=== PATIENT | male | born 1970 | race African-American/Black ===

== ENCOUNTER 2017-02-12 12:28 | Emergency (ER) | payer SELFPAY ==
[2017-02-12 12:50] VITALS: BP 137/102; BMI 41.5
--- NOTE | 2017-02-12 13:39 | DR.EXTPAIN ---
HPI - Time seen Time seen: 13:36 - PCP Primary Care Physician: HAROON - Complaint/Symptoms Chief Complaint:: PT C/O THAT SINCE YESTERDAY MORNING HE STARTED HAVING BACK PAIN THAT RADIATES TO HIS RIGHT LEG .... - Source History Provided: Patient - Mode of arrival Mode of Arrival: Wheelchair - Timing Onset of Chief Complaint: 02/11/17 PMH - PMH Past Medical History: No Past Medical History: Diabetes Past Surgical History: Yes Surgical History: Cholecystectomy Past Surgical History Comment: LEFT SHOULDER. - Family History History of Family Medical Conditions: Yes Family Medical History: Diabetes Mellitus, Hypertension - Social History Does patient currently use any type of tobacco product: No Have you used tobacco products in the last 12 months: No Type of Tobacco Use: None Does any household member use tobacco: No Alcohol Use: None Do you use any recreational Drugs:: No Lives With: Alone Lives Where: Home - infectious screening In the last 2 months have you had wt loss of >10#?: NO Have you had fever, night sweats or hemotysis?: No Have you traveled outside the country in the last 6 months?: No Isolation: Standard ROS - Review of Systems Constitutional: No Symptoms Reported Eyes: No Symptoms Reported ENTM: No Symptoms Reported Respiratoy: No Symptoms Reported Cardiovascular: No Symptoms Reported Gastrointestinal/Abdominal: No Symptoms Reported Genitourinary: No Symptoms Reported Neurological: Numbness (right leg) Musculoskeletal: Back Pain Integumentary: No Symptoms Reported Hematologic/Lymphatic: No Symptoms Reported Endocrine: No Symptoms Reported, Increased Hunger All Other Systems: Reviewed and Negative PE - Vital Signs Vitals: Temperature 98.5 F Pulse Rate 104 Respiratory Rate 20 Blood Pressure [Left Arm] 127/83 Blood Pressure 137/102 O2 Sat by Pulse Oximetry 98 - General Limitations: No Limitations General Appearance: Alert, In No Apparent Distress - Head Head Exam: Normal Inspection, Atraumatic - Eyes Eye exam: Normal Appearance, PERRL, EOMI - ENT ENT Exam: Normal Exam - Neck Neck Exam: Normal Inspection, Full ROM, Trachea Midline - Cardiovascular Cardiovascular Exam: Regular Rate - Abdominal Exam Abdominal Exam: Normal Inspection, Normal Bowel Sounds Abdominal Tenderness: negative: RUQ, RLQ, LUQ, LLQ, Epigastrium, Suprapubic, Diffuse, Mild, Moderate, Severe, Other - Extremities Extremities Exam: Normal Inspection, Full ROM - Upper Extremities Shoulder Exam: Normal Inspection Arm Exam: Normal Inspection, Full ROM Elbow Exam: Normal Inspection Forearm Exam: Normal Inspection Hand Exam: Normal Inspection Neuromotor Exam: Normal Exam, Wrist Extension Neurosensory Exam: Normal Exam Hand Tendon Exam: Flexor Digitorium Profundus (Location) Upper Ext. Vascular Exam: Capillary Refill - Lower Extremities Hip/Pelvis Exam: Normal Inspection Upper Leg Exam: Normal Inspection Knee Exam: Normal Inspection Lower Leg Exam: Normal Inspection Ankle Exam: Normal Inspection Foot/Toe Exam: Normal Inspection Neurovascular/Tendon Exam: Normal Capillary Refill Gait Exam: Observed and Normal - Back Back Exam: Normal Inspection - Neurological Neurological Exam: Alert, Oriented X3, CN II-XII Intact - Psychiatric Psychiatric Exam: Normal Affect, Normal Mood - Skin Skin Exam: Warm, Dry, Intact Type of Lesion: Rash Distribution: Generalized Description: Size ROR - XRAY XRAY Interpreted by: Self (Lumbar: w/o pathology) - Diagnosis Discharge Problem: Muscle spasm of back - Discharge Plan Condition: Stable - Follow ups/Referrals Follow ups/Referrals: NFD,None [Primary Care Provider] - 3 days - Instructions
[2017-02-12] MEDS ORDERED: VALIUM INJ IM ONE (14:31)
[2017-02-12] MEDS ORDERED: VALIUM INJ ONE (14:32)
[2017-02-12] MEDS ORDERED: TORADOL 60 MG VIAL IM ONE (15:23)
[2017-02-12] MEDS ORDERED: TORADOL 60 MG VIAL ONE (15:24)
--- NOTE | 2017-02-12 15:25 | RAD ---
HISTORY: Low back pain extending into right lower extremity Study: Three-view lumbar spine Comparison: None Findings: Vertebral alignment is normal. There is no spondylolisthesis. There is chronic mild anterior wedging of the T10 and T11 vertebral bodies. Mild to moderate loss of disc space height is evident at the L 5-S1 level with associated degenerative endplate change. There is also moderate loss of disc space h eight at the T11-T12 level with associated degenerative endplate changes well. Facet hypertrophy is noted within the lower lumbar spine. IMPRESSION: 1. Multilevel lumbar spondylosis and facet hypertrophy as above Reported By:
== END 2017-02-12 15:50 | disposition hospice, inpatient (51) ==
LOC: ER 12:28
DX: M54.89 Other dorsalgia (principal)
CPT/HCPCS: 72100; 96372; 99282; 99283; J1885; J3360

== ENCOUNTER 2017-10-21 14:39 | Emergency (ER) | payer SELFPAY ==
[2017-10-21 14:51] VITALS: BMI 37.9
--- NOTE | 2017-10-21 16:48 | DR.GENAD ---
HPI - PCP Primary Care Physician: NFD - Complaint/Symptoms Chief Complaint Doctors Comments: Patient states he was diagnosed with diabetes and hypertension and was taking medicines but has been out for a long time now is complaining of headache, cold, night sweats with knee pain for the past week. states he has not had his glucose checked in two months. States he has been having nocturia but denies hematuria. States he smokes occasionally and drinks at times but denies drug usage. He denies chest pain or SOB. States he has been having nocturia but denies hematuria. Chief Complaint:: PT C/O HAVING A MERINO, TIMES 2 WEEKS AGO AND PT HAS LEFT SHOULDER AND KNEE PAIN ".. PT DOES NOT KNOW WHAT MED HE TAKES FOR HIS BLOOD SUGAR, Self Treatment fo Chief Complaint: NO - Nurses notes reviewed Nurses Notes Review: Yes - Source History Provided: Patient - Mode of Arrival Mode of Arrival: Ambulatory - Timing Onset of Chief Complaint: 10/10/17 Came on: Gradually - Duration Duration: Intermittent How lon Duration: Weeks - Location Location: knee pain - Severity Severity: Mild - Modifying Factors Worsens:: nothing Improves:: nothing PMH - PMH Past Medical History: Yes Past Medical History: Diabetes, Hypertension Past Surgical History: Yes Surgical History: Cholecystectomy Past Surgical History Comment: LEFT ROTATOR CUFF, - Family History History of Family Medical Conditions: Yes Family Medical History: Diabetes Mellitus, Hypertension - Social History Does patient currently use any type of tobacco product: No Have you used tobacco products in the last 12 months: No Type of Tobacco Use: Cigarettes How many years tobacco product used: 3 Does any household member use tobacco: No Alcohol Use: None Do you use any recreational Drugs:: No Lives With: Alone Lives Where: Home - infectious screening In the last 2 months have you had wt loss of >10#?: NO Have you had fever, night sweats or hemotysis?: No Have you traveled outside the country in the last 6 months?: No Isolation: Standard ROS - Review of Systems Constitutional: No Symptoms Reported, Loss of Appetite. negative: See HPI, Chills, Diaphoresis, Fever, Malaise, Weakness, Irritable, Fatigue, Other Eyes: No Symptoms Reported ENTM: No Symptoms Reported, Nose Discharge, Nose Congestion. negative: See HPI , Ear Pain, Ear Discharge, Pulling on Ears, Hearing Loss, Nose Pain, Epistaxis, Mouth Pain, Mouth Swelling, Loose Teeth, Drooling, Throat Pain, Throat Swelling , Ear Foreign Body Respiratoy: No Symptoms Reported, Non-Productive Cough. negative: See HPI, Productive Cough, Moist Cough, Dry Cough, Hacking Cough, Barking Cough, Brassy Cough, Orthopnea, Short of Breath, Stridor, Wheezing, Hemoptysis, Other Cardiovascular: No Symptoms Reported. negative: See HPI, Chest Pain, Edema, Palpitations, Syncope, Cyanosis, Skin Mottling, Other Gastrointestinal/Abdominal: No Symptoms Reported. negative: See HPI, Abdominal Pain, Constipation, Diarrhea, Nausea, Vomiting, Food Intolerance, Other Genitourinary: No Symptoms Reported, Frequency. negative: See HPI, Discharge, Dysuria, Hematuria, Pain, Bleeding, Other Neurological: No Symptoms Reported. negative: See HPI, Anxiety, Depressed, Emotional Problems, Headache, Numbness, Paresthesia, Pre-existing Deficit, Seizure, Tingling, Tremors, Weakness, Dizziness, Problems Walking, Speech Problem, Other Musculoskeletal: No Symptoms Reported Integumentary: No Symptoms Reported Hematologic/Lymphatic: No Symptoms Reported Endocrine: No Symptoms Reported. negative: See HPI, Excessive Sweating, Flushing, Intolerance to Cold, Intolerance to Heat, Increased Hunger, Increased Thirst, Increased Urine, Unexplained Weight Gain, Unexplained Weight Loss, Failure to Thrive, Decreased Appetite, Other Psychiatric: No Symptoms Reported. negative: See HPI, Anxiety, Depression, Hallucinations, Excessive crying, Suicidal, Other PE - Vital Signs Vitals: Temperature 97.2 F Pulse Rate 109 Respiratory Rate 18 Blood Pressure [Left Arm] 127/83 Blood Pressure 173/101 O2 Sat by Pulse Oximetry 96 - General Limitations: No Limitations General Appearance: Alert, In No Apparent Distress. negative: Appears Intoxicated, Anxious, Lethargic, Obtunded, In Distress, Obese, Cachectic, Other - Head Head Exam: Normal Inspection, Atraumatic, Normocephalic - Eyes Eye exam: Normal Appearance, PERRL, EOMI. negative: Scleral Icterus, Conjunctival Injection, Nystagmus, Miosis, Mydrasis, Periorbital Swelling, Periorbital Tenderness, Other - ENT ENT Exam: Normal Exam, Normal Oropharynx, Normal External Ear Exam, Mucous Membranes Moist, TM's Normal Bilaterally External Ear Exam: Normal External Inspection TM/Canal Exam: Bilateral Normal Nose Exam: Normal Nose Exam Mouth Exam: Normal Inspection Throat Exam: Normal Inspection. negative: Tonsillar Erythema, Tonsillomegaly, Tonsillar Exudate, R Peritonsillar Mass, L Peritonsillar Mass, Muffled Voice, Other - Neck Neck Exam: Normal Inspection, Full ROM, Trachea Midline - Chest Chest Inspection: Normal Inspection, Symmetric Chest Wall Rise - Respiratory Respiratory Exam: Normal Lung Sounds Bilat Respiratory Exam: Bilateral Clear to Auscultation - Cardiovascular Cardiovascular Exam: Regular Rate, Normal Rhythm, Normal Heart Sounds. negative : Bradycardia, Tachycardia, Irregular Rhythm, Systolic Murmur, Diastolic Murmur , Rubs, Gallop, Clicks, JVD, +S1, +S2, +S3, +S4, Other - Abdominal Exam Abdominal Exam: Normal Inspection, Normal Bowel Sounds, Soft. negative: Distention, Tenderness, Guarding, Rebound, Rigidity, Dimnished Bowel Sounds, Hyperactive Bowel Sounds, Hypoactive Bowel Sounds, Organomegaly, Trauma, Incision, Ascites, Mass, Bruit, Pulsatile Mass, Hernia, Other Abdominal Tenderness: negative: RUQ, RLQ, LUQ, LLQ, Epigastrium, Suprapubic, Diffuse, Mild, Moderate, Severe, Other - Extremities Extremities Exam: Normal Inspection, Full ROM, Normal Capillary Refill. negative: Tenderness, Edema, Joint Swelling, Calf Tenderness, Other - Back Back Exam: Normal Inspection, Full ROM. negative: Tenderness, (R) CVA Tenderness, (L) CVA Tenderness, Muscle Spasm, Paraspinal Tenderness, Vertebral Tenderness, Rashes, (R) Sciatic Notch Tenderness, (L) Sciatic Notch Tendern, (R ) Straight Leg Raise, (L) Straight Leg Raise, Other - Neurologic Neurological Exam: Alert, Oriented X3, CN II-XII Intact, Normal Gait, Reflexes Normal - Psychiatric Psychiatric Exam: Normal Affect, Normal Mood. negative: Depressed, Agitated, Anxious, Flat Affect, Manic, Homicidal Ideation, Suicidal Ideation, Other - Skin Skin Exam: Warm, Dry, Intact, Normal Color ROR - Labs Reviewed Laboratory Results Reviewed?: Yes (all labs and x-ray results reviewed and discussed with patient) Result Diagrams: 10/21/17 16:50 10/21/17 16:50 Laboratory: WBC 10.7 X10^3/uL (3.6-10.0) H 10/21/17 16:50 RBC 5.83 X10^6/uL (4.7-6.0) 10/21/17 16:50 Hgb 15.3 g/dL (13.5-18.0) 10/21/17 16:50 Hct 45.6 % (42.0-54.0) 10/21/17 16:50 MCV 78.1 fL (80.0-100.0) L 10/21/17 16:50 MCH 26.2 pg (27.0-34.0) L 10/21/17 16:50 MCHC 33.6 g/dL (33.0-35.0) 10/21/17 16:50 RDW 13.3 % (11.6-16.5) 10/21/17 16:50 Plt Count 287 X10^3/uL (150.0-450.0) 10/21/17 16:50 MPV 8.0 fL (7.4-11.0) 10/21/17 16:50 Neut % 40.7 % (42.0-75.0) L 10/21/17 16:50 Lymph % 50.6 % (21.0-51.0) 10/21/17 16:50 [place] % 6.4 % (0.0-13.0) 10/21/17 16:50 Eos % 0.9 % (0.9-2.9) 10/21/17 16:50 Baso % 1.4 % (0.2-1.0) H 10/21/17 16:50 Neut # 4.4 x10^3/uL (2.2-4.8) 10/21/17 16:50 Lymph # 5.4 X10^3/uL (1.3-2.9) H 10/21/17 16:50 [place] # 0.7 x10^3/uL (0.3-0.8) 10/21/17 16:50 Eos # 0.1 x10^3/uL (0.0-0.2) 10/21/17 16:50 Baso # 0.1 X10^3/uL (0.0-0.1) 10/21/17 16:50 Absolute Nucleated RBC 0.0 /100WBC 10/21/17 16:50 Sodium 139 mmol/L (136-145) 10/21/17 16:50 Corrected Sodium 141 mmol/L (136-145) 10/21/17 16:50 Potassium 3.7 mmol/L (3.5-5.1) 10/21/17 16:50 Chloride 102 mmol/L (98-107) 10/21/17 16:50 Carbon Dioxide 26.5 mmol/L (21-32) 10/21/17 16:50 BUN 6 mg/dL (7-18) L 10/21/17 16:50 Creatinine 0.80 mg/dL (0.70-1.30) 10/21/17 16:50 Est GFR (MDRD) Af Amer > 60 (>60) 10/21/17 16:50 Est GFR (MDRD) Non-Af > 60 (>60) 10/21/17 16:50 Glucose 168 mg/dL (65-99) H 10/21/17 16:50 Calcium 9.7 mg/dL (8.5-10.1) 10/21/17 16:50 Corrected Calcium TNP 10/21/17 16:50 Total Bilirubin 0.40 mg/dL (0.2-1.0) 10/21/17 16:50 AST 16 Units/L (15-37) 10/21/17 16:50 ALT 25 Units/L (12-78) 10/21/17 16:50 Alkaline Phosphatase 68 Units/L (46-116) 10/21/17 16:50 Total Protein 8.5 g/dL (6.4-8.2) H 10/21/17 16:50 Albumin 3.9 g/dL (3.4-5.0) 10/21/17 16:50 Globulin 4.6 g/dL (2.5-4.5) H 10/21/17 16:50 Albumin/Globulin Ratio 0.8 Ratio (1.1-2.1) L 10/21/17 16:50 - Diagnosis Discharge Problem: Essential hypertension, Degenerative arthritis of knee Diabetes mellitus Qualifiers: Diabetes mellitus type: type 2 - Discharge Plan Disposition: HOME, SELF-CARE Condition: Stable Prescriptions: Ibuprofen [MOTRIN TAB 800 MG *] 800 mg PO BID PRN #60 tab PRN Reason: Pain/Inflammation Lisinopril & Hydrochlorothiazi [ZESTORETIC 10/12.5 MG *] 1 tab PO DAILY #30 tab - Follow ups/Referrals Follow ups/Referrals: NFD,None [Primary Care Provider] - 3 days АННА TREJO [STAFF PHYSICIAN] - 3 days - Instructions Instructions: Hyperglycemia, [id number], Type 2 Diabetes Mellitus, Adult, [id number], Blood Glucose Monitoring, Adult, Hypertension, [id number], DASH Eating Plan
[2017-10-21 17:00] LABS: BASOPHILS # (AUTO) 0.1 X10^3/uL (0.0-0.1); BASOPHILS % (AUTO) 1.4 % (0.2-1.0); EOSINOPHILS # (AUTO) 0.1 x10^3/uL (0.0-0.2); EOSINOPHILS % (AUTO) 0.9 % (0.9-2.9); HEMATOCRIT 45.6 % (42.0-54.0); HEMOGLOBIN 15.3 g/dL (13.5-18.0); LYMPHOCYTES # (AUTO) 5.4 X10^3/uL (1.3-2.9); LYMPHOCYTES % (AUTO) 50.6 % (21.0-51.0); MEAN CORPUSCULAR HEMOGLOBIN 26.2 pg (27.0-34.0); MEAN CORPUSCULAR HGB CONC 33.6 g/dL (33.0-35.0); MEAN CORPUSCULAR VOLUME 78.1 fL (80.0-100.0); MONOCYTES # (AUTO) 0.7 x10^3/uL (0.3-0.8); MONOCYTES % (AUTO) 6.4 % (0.0-13.0); NEUTROPHILS # (AUTO) 4.4 x10^3/uL (2.2-4.8); NEUTROPHILS % (AUTO) 40.7 % (42.0-75.0); PLATELET COUNT 287 X10^3/uL (150.0-450.0); RED BLOOD COUNT 5.83 X10^6/uL (4.7-6.0); RED CELL DISTRIBUTION WIDTH 13.3 % (11.6-16.5); WHITE BLOOD COUNT 10.7 X10^3/uL (3.6-10.0)
[2017-10-21 17:09] LABS: ALANINE AMINOTRANSFERASE 25 Units/L (12-78); ALBUMIN 3.9 g/dL (3.4-5.0); ALKALINE PHOSPHATASE 68 Units/L (46-116); ASPARTATE AMINO TRANSFERASE 16 Units/L (15-37); BLOOD UREA NITROGEN 6 mg/dL (7-18); CALCIUM 9.7 mg/dL (8.5-10.1); CARBON DIOXIDE 26.5 mmol/L (21-32); CHLORIDE 102 mmol/L (98-107); COR NA(FOR HYPERGLY) 141 mmol/L (136-145); SODIUM 139 mmol/L (136-145); TOTAL PROTEIN 8.5 g/dL (6.4-8.2); eGFR BLACK RACES > 60 (>60); eGFR NON BLACK RACES > 60 (>60)
[2017-10-21] MEDS ORDERED: MOTRIN TAB 800 MG PO STA (18:41)
[2017-10-21] MEDS ORDERED: ZESTORETIC 10/ 12.5MG PO STA (18:42)
[2017-10-21 18:43] VITALS: BP 130/70
[2017-10-21] MEDS ORDERED: MOTRIN TAB 800 MG PO ONE (18:44)
[2017-10-21 19:15] LABS: APPEARANCE,URINE CLOUDY (CLEAR); COLOR,URINE YELLOW (YELLOW)
[2017-10-21 19:16] LABS: GLUCOSE, URINE 2+ (NEGATIVE); PROTEIN,URINE 1+ (NEGATIVE)
[2017-10-21 19:17] LABS: BILIRUBIN,URINE NEGATIVE (NEGATIVE); BLOOD/HEMOGLOBIN,URINE NEGATIVE (NEGATIVE); KETONES,URINE NEGATIVE (NEGATIVE); UROBILINOGEN,URINE NORMAL (NORMAL)
[2017-10-21 19:18] LABS: BACTERIA,URINE TRACE /HPF (NEGATIVE); LEUKOCYTE ESTERASE ,URINE NEGATIVE (NEGATIVE); NITRITES,URINE NEGATIVE (NEGATIVE); SQUAMOUS EPITHELIAL CELL,UR NUMEROUS /HPF (NEGATIVE); TRICHOMONAS,URINE MODERATE /HPF (NEGATIVE)
== END 2017-10-21 18:50 | disposition home or self-care (01) ==
LOC: ER 14:57
DX: E11.9 Type 2 diabetes mellitus without complications (principal); I10 Essential (primary) hypertension; M19.90 Unspecified osteoarthritis, unspecified site
CPT/HCPCS: 36415; 80053; 81001; 85025; 99282

== ENCOUNTER 2017-12-18 12:01 | Emergency (ER) | payer SELFPAY ==
[2017-12-18 12:07] VITALS: BP 133/81
--- NOTE | 2017-12-18 13:08 | DR.URIAD ---
HPI - Time Seen Time seen: 13:00 - PCP Primary Care Physician: HAROON - HPI Comment HPI Comment: ALSO N/V/D THAT IS RESOLVING. WEAK TODAY. - Complaint Chief Complaint Doctors Comments: COUGH, COLD CONGESTION THAT IS GETTING WORSE WITH FEVER. Chief Complaint:: PT STATES " I THINK I HAVE THE FLU".. I HAVE HAD SOME KIDS MOVED IN WITH ME AND THEY HAD THE FLU ,,, AND I HAVE THE COLD SWEATS, CCC, AND DOING NUMBER ONE AND 2 ALOT. Self Treatment fo Chief Complaint: NO MEDS , - Source History Provided: Patient - Mode of Arrival Mode of Arrival: Ambulatory - Timing Onset of Chief Complaint: 12/15/17 - Quality Shortness of Breath: none PMH - PMH Past Medical History: Yes Past Medical History: Diabetes, Hypertension Past Surgical History: Yes Surgical History: Cholecystectomy - Family History History of Family Medical Conditions: Yes Family Medical History: Diabetes Mellitus, Hypertension - Social History Does patient currently use any type of tobacco product: No Have you used tobacco products in the last 12 months: No Type of Tobacco Use: None Does any household member use tobacco: No Alcohol Use: Rarely Do you use any recreational Drugs:: No Lives With: Spouse Lives Where: Home - infectious screening In the last 2 months have you had wt loss of >10#?: NO Have you had fever, night sweats or hemotysis?: No Have you traveled outside the country in the last 6 months?: No Isolation: Standard ROS - Review of Systems Constitutional: Fever, Weakness, Fatigue. negative: Chills Eyes: No Symptoms Reported ENTM: Nose Discharge, Nose Congestion, Throat Pain. negative: Ear Pain Respiratoy: Wheezing, Hemoptysis. negative: Short of Breath Cardiovascular: No Symptoms Reported Genitourinary: No Symptoms Reported Neurological: Weakness Musculoskeletal: Muscle Pain Integumentary: Dryness Hematologic/Lymphatic: No Symptoms Reported Endocrine: No Symptoms Reported All Other Systems: Reviewed and Negative PE - Vital Signs Vitals: Temperature 98.4 F Pulse Rate 121 Respiratory Rate 20 Blood Pressure [Left Arm] 130/70 Blood Pressure 133/81 O2 Sat by Pulse Oximetry 99 - General Limitations: No Limitations General Appearance: Alert - Head Head Exam: Normal Inspection - Eyes Eye exam: Normal Appearance - ENT ENT Exam: Normal External Ear Exam External Ear Exam: Normal External Inspection TM/Canal Exam: Bilateral Normal Nose Exam: Normal Nose Exam Mouth Exam: Normal Inspection Throat Exam: Normal Inspection - Neck Neck Exam: Trachea Midline - Chest Chest Inspection: Symmetric Chest Wall Rise - Respiratory Respiratory Exam: Normal Lung Sounds Bilat Respiratory Exam: Bilateral Clear to Auscultation - Cardiovascular Cardiovascular Exam: Regular Rate, Normal Rhythm, Normal Heart Sounds - Abdominal Exam Abdominal Exam: Normal Inspection, Normal Bowel Sounds. negative: Tenderness - Extremeties Extremities Exam: Normal Inspection - Back Back Exam: Normal Inspection - Neurologic Neurological Exam: Alert, Oriented X3 - Psychiatric Psychiatric Exam: Normal Affect, Normal Mood - Skin Skin Exam: Normal Color MDM - Differential Diagnosis Differential Diagnosis: Influenza A, Influenza B, Otitis media, Streptococcal pharyngitis, Viral pharyngitis, Pneumonia, Sinsusitis, URI Course - Treatment Treatment: SEE ORDERS. - Education/Counseling Education/Counseling: Patient, Education Educated On: Diagnosis, Needs for Follow Up ROR - Labs Reviewed Laboratory Results Reviewed?: Yes Laboratory: Influenza Type A (PCR) Positive (NEGATIVE) A 12/18/17 12:17 Influenza Type B (PCR) Negative (NEGATIVE) 12/18/17 12:17 - Diagnosis Discharge Problem: Influenza, Bronchitis - Discharge Plan Disposition: 01 HOME, SELF-CARE Condition: Stable Prescriptions: Acetaminophen with Codeine [Tylenol/Codeine #3 300-30 mg] 1 tab PO Q6H PRN #15 tab PRN Reason: Pain Amoxicillin [Amoxil 875 mg] 875 mg PO Q12H #20 tab Oseltamivir Phosphate [Tamiflu] 75 mg PO BID #10 cap - Follow ups/Referrals Follow ups/Referrals: NFD,None [Primary Care Provider] - 3 days - Instructions Instructions: Influenza, Adult, [id number], Acute Bronchitis, [id number] Additional Instructions: RETURN TO ED IF WORSE.
== END 2017-12-18 13:20 | disposition home or self-care (01) ==
LOC: ER 12:10
DX: J11.1 Influenza due to unidentified influenza virus with other respiratory manifestations (principal); J40 Bronchitis, not specified as acute or chronic
CPT/HCPCS: 87502; 99282